=== PATIENT | female | born 1950 | race Caucasian/White ===

== ENCOUNTER → 2018-06-24 | Outpatient (CLI) | payer OTHER, MEDICARE | END | disposition home or self-care (01) | LOC: FIMAGING 14:27 | PROVIDERS: ATTEND Urology | DX: R30.0 Dysuria (principal); R93.41 Abnormal radiologic findings on diagnostic imaging of renal pelvis, ureter, or bladder; Z85.3 Personal history of malignant neoplasm of breast ==

== ENCOUNTER → 2018-08-13 | Outpatient (CLI) | payer OTHER, MEDICARE | LOC: FIMAGING 14:11 | DX: Z01.818 Encounter for other preprocedural examination (principal); Z85.3 Personal history of malignant neoplasm of breast ==

== ENCOUNTER 2018-08-18 22:26 | Emergency (ER) | payer OTHER, MEDICARE ==
[2018-08-18] MEDS ORDERED: IOPAMIDOL (ISOVUE-300) 100 ML BTL ONE (22:58)
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
[2018-08-18] MEDS ORDERED: ALPRAZolam 0.25 MG TAB PO ONE (23:08)
[2018-08-18 23:35] LABS: PLATELET COUNT 113 10^3/uL (150-400)
[2018-08-18] MEDS ORDERED: NS 1,000 ML IV ONE (23:42)
[2018-08-19 01:05] VITALS: BP 105/76
[2018-08-19] MEDS ORDERED: SULFAMET/TMP DS PREPACK#2 BTL TAKEHOME ONE (01:06)
[2018-08-19] MEDS ORDERED: ONDANSETRON 4MG PREPACK#2 BTL TAKEHOME ONE (01:19)
== END 2018-08-19 01:25 | disposition home or self-care (01) ==
DX: N39.0 Urinary tract infection, site not specified (principal)
CPT/HCPCS: 74177; 96360; 99285; Q9967

== ENCOUNTER 2018-09-24 17:15 | Observation (INO) | payer OTHER, MEDICARE ==
--- NOTE | 2018-09-24 17:39 | EDPHY ---
General Time Seen by Provider: 09/24/18 17:38 Narrative: CLINICAL IMPRESSION: Small Bowel obstruction ASSESSMENT/PLAN: Patient is a 68-year-old female with a history of remote bowel obstruction status post resection in 2 additional abdominal surgeries as well as remote breast cancer, presents with sudden onset periumbilical pain. Patient is afebrile, she is very uncomfortable appearing however not toxic appearing. Her abdomen was soft and nondistended, she was very tender to palpation superior and inferior to the umbilicus with mild voluntary guarding. CBC revealed no evidence of leukocytosis. Her vital signs were reviewed and there was no evidence of sepsis or serious bacterial illness. BMP revealed mild hypokalemia, no evidence of acute kidney injury. Lipase and hepatic panel grossly unremarkable. CT abdomen and pelvis with findings suggestive of mid-distal jejunal early bowel obstruction. History and physical examination is consistent with early bowel obstruction. I discussed this case with Dr. JOBY Nunez, she will be admitted to his service for further observation and management. He did evaluate this patient in the emergency department. The patient's pain was adequately controlled in the emergency department, on repeat examination prior to transfer to the floor her abdomen was soft with diffuse tenderness to palpation, no peritoneal signs or evidence of a surgical abdomen. DIFFERENTIAL DX: Abdominal pain including but not limited to appendicitis, cholecystitis, gastritis and urinary tract infection. ED COURSE: 1753: Discussed case with Dr. Stauffer 1902: Discussed case with Dr. Fernandez, patient with findings suggestive of early bowel obstruction at the mid distal jejunum close to the anastomosis. 1907: General surgery shy, discussed case with JOBY Nunez. 1923: Discussed CT findings with patient, will admit to Dr. Nunez for observation. On repeat exam she is much more comfortable appearing, her abdomen is soft with mild diffuse tenderness, no evidence of a surgical abdomen. CHIEF COMPLAINT: Sudden onset central abdominal pain HPI: Patient is a 68-year-old female with a history of remote bowel obstruction status post resection and remote breast cancer who presents to the emergency department with a sudden onset of centralized abdominal pain which occurred 30 min after she ate a smoothie from [employer]. Patient reports she does have intolerance to certain acidic fruits, she had a freda smoothie and is concerned it might have had bacteria in it which is causing her symptoms. Patient reports sudden onset of centralized abdominal pain that waxes and wanes in intensity. She describes it as aching in nature however sharp when it is most intense. It is non radiating. She does have some associated nausea however denies any vomiting. She denies any recent fever or other illness. She has had no chest pain or shortness of breath. She does endorse a bowel obstruction 2014 which required 3 abdominal surgeries. She had a bowel movement during her symptoms, denies diarrhea, melena or hematochezia. She has had no urinary symptoms to include dysuria, hematuria or frequency. She is unsure if she has experienced pain like this before. PMH: Remote breast cancer, reported metastatic cancer to her chest wall and lungs and 2013 which has reportedly resolved Pertinent Past Surgical History: Bowel resection, to additional revisions Family History: Noncontributory Social History: CBD, denies frequent alcohol use or illicit drug use REVIEW OF SYSTEMS: All other systems negative Constitutional: Decreased appetite. No fever, no chills. Eyes: No discharge, vision change ENT: No sore throat, congestion, ear pain. Cardiovascular: No chest pain, no palpitations. Respiratory: No cough, no shortness of breath. Gastrointestinal: Abdominal pain and nausea. No vomiting or diarrhea. Genitourinary: No hematuria, dysuria, flank pain or pelvic pain. Musculoskeletal: No back pain, joint swelling, joint pain, myalgias. Skin: No rashes, color change. Neurological: No headache, dizziness, weakness. PHYSICAL EXAM: General Appearance: Patient is well-developed, she is uncomfortable appearing bent over grabbing abdomen however not toxic-appearing. HENT: Normocephalic, atraumatic. Bilateral external ears are normal. Bilateral tympanic membranes are normal with pearly munoz reflex. Nares are clear, mucosa is pink. Oropharynx is clear however mucosa is dry, uvula is midline. There is no tonsillar enlargement or exudate. The dentition is normal. Eyes: PERRLA, no acute vision change, nystagmus, swelling, discharge, pain or photosensitivity. Conjunctiva pink, no pallor or injection. Neck: Supple, nontender, no lymphadenopathy, no midline pain, FROM, no meningismus. Respiratory: There are no retractions, lungs are clear to auscultation. Cardiac: Regular rate and rhythm, no murmurs or gallops. Gastrointestinal: Patient with a well-healed midline abdominal incision inferior to the umbilicus. She is tender to palpation superior and inferior to the umbilicus with voluntary guarding. Bowel sounds are present, there are no appreciable masses or hernias present. There is no rigidity or rebound tenderness. Neurological: Alert and oriented x 3, CN 2-12 grossly intact, normal gait no ataxia, DTR's intact, normal sensation and strength Skin: Warm, dry, no rashes, no nodules on palpation. Musculoskeletal: Extremities are symmetrical, full range of motion, no tenderness, deformity, swelling, or erythema. Psychiatric: Patient is oriented X 3, there is no agitation. MEDICAL DECISION MAKING: Patient was seen independently. Secondary supervising physician at time of evaluation was Dr. Stauffer. Diagnosis: Abdominal pain and nausea. New, requires workup Summary: See Assessment and Plan for summary of ED visit Clinical lab tests: ordered / reviewed. Independent visualization of images, tracing, or specimens: Yes. Decision to obtain medical records or history from someone other than the patient: No Review / Summarize previous medical records: Yes Discussed patient with another provider: Yes, Dr. Stauffer Patient Progress: Stable, admit. - Diagnostics Imaging Results: Imaging Impressions Abdomen CT 09/24/18 17:52 Impression: 1. Mild early partial small bowel obstruction at the proximal and mid jejunum. 2. Resolution of the bladder wall thickening seen previously. 3. Mild nonspecific intrahepatic biliary ductal dilatation similar to the prior exam. Results called and discussed with CHITRA Ortiz on September 24, 2018 at 1909 hours. - History Smoking Status: Never smoked - Objective Vital Signs: Initial Vital Signs Temperature (C) 36.6 C 09/24/18 17:18 Heart Rate 70 09/24/18 17:18 Respiratory Rate 25 H 09/24/18 17:18 Blood Pressure 154/64 H 09/24/18 17:18 O2 Sat (%) 100 09/24/18 17:18 O2 Delivery Mode Room Air Allergies/Adverse Reactions: Penicillins Allergy (Intermediate, Verified 09/24/18 17:20) erythromycin base [Erythromycin Base] Allergy (Verified 09/24/18 17:20) nitrofurantoin Allergy (Verified 09/24/18 17:20) Home Medications: Medication Instructions Recorded Herbals/Supplements -Info Only 1 ea PO DAILY 09/24/18 Multivitamins [Multivitamin (*)] 1 each PO DAILY 09/24/18 Laboratory Results: Laboratory Results 09/24/18 18:14 09/24/18 18:14 09/24/18 09/24/18 09/24/18 18:21 18:14 18:14 WBC 5.50 10^3/uL 10^3/uL (3.80-9.50) RBC 4.83 10^6/uL 10^6/uL (4.18-5.33) Hgb 13.4 g/dL g/dL (12.6-16.3) POC Hgb 14.3 gm/dL gm/dL (12.6-16.3) Hct 39.9 % % (38.0-47.0) POC Hct 42 % % (38-47) MCV 82.6 fL fL (81.5-99.8) MCH 27.7 pg L pg (27.9-34.1) MCHC 33.6 g/dL g/dL (32.4-36.7) RDW 22.5 % H % (11.5-15.2) Plt Count 118 10^3/uL L 10^3/uL (150-400) MPV TNP Neut % (Auto) 56.8 % % (39.3-74.2) Lymph % (Auto) 33.1 % % (15.0-45.0) [place] % (Auto) 8.2 % % (4.5-13.0) Eos % (Auto) 0.4 % L % (0.6-7.6) Baso % (Auto) 0.2 % L % (0.3-1.7) Nucleat RBC Rel Count 0.0 % % (0.0-0.2) Absolute Neuts (auto) 3.13 10^3/uL 10^3/uL (1.70-6.50) Absolute Lymphs (auto) 1.82 10^3/uL 10^3/uL (1.00-3.00) Absolute Monos (auto) 0.45 10^3/uL 10^3/uL (0.30-0.80) Absolute Eos (auto) 0.02 10^3/uL L 10^3/uL (0.03-0.40) Absolute Basos (auto) 0.01 10^3/uL L 10^3/uL (0.02-0.10) Absolute Nucleated RBC 0.00 10^3/uL 10^3/uL (0-0.01) Immature Gran % 1.3 % H % (0.0-1.1) Immature Gran # 0.07 10^3/uL 10^3/uL (0.00-0.10) Platelet Estimate DECREASED L (ADEQ) Polychromasia 1+ H Microcytic Cells 1+ H Elliptocytes 1+ H Schistocytes 1+ H POC Sodium 142 mEq/L mEq/L (135-145) Sodium 138 mEq/L mEq/L (135-145) POC Potassium 3.3 mEq/L mEq/L (3.3-5.0) Potassium 3.4 mEq/L L mEq/L (3.5-5.2) POC Chloride 103 mEq/L mEq/L (97-110) Chloride 103 mEq/L mEq/L (97-110) Carbon Dioxide 23 mEq/l mEq/l (22-31) POC Total CO2 23 mEq/L mEq/L (22-31) Anion Gap 12 mEq/L mEq/L (6-14) POC BUN 10 mg/dL mg/dL (7-23) BUN 12 mg/dL mg/dL (7-23) Creatinine 0.7 mg/dL mg/dL (0.6-1.0) POC Creatinine 0.7 mg/dL mg/dL (0.6-1.0) Estimated GFR > 60 Glucose 111 mg/dL H mg/dL (70-100) POC Glucose 114 mg/dL H mg/dL (70-100) Calcium 10.1 mg/dL mg/dL (8.5-10.4) Total Bilirubin 0.9 mg/dL mg/dL (0.1-1.4) Conjugated Bilirubin 0.3 mg/dL mg/dL (0.0-0.5) Unconjugated Bilirubin 0.6 mg/dL mg/dL (0.0-1.1) AST 33 IU/L IU/L (14-46) ALT 44 IU/L IU/L (9-52) Alkaline Phosphatase 69 IU/L IU/L (38-126) Total Protein 7.8 g/dL g/dL (6.3-8.2) Albumin 4.8 g/dL g/dL (3.5-5.0) Lipase 129 IU/L IU/L (23-300) Medications Given: Ondansetron HCl (Zofran) 4 mg IVP Q4 PRN PRN Reason: Nausea/Vomiting, Can't Take PO Stop: 03/23/19 17:52 Last Admin: 09/24/18 18:15 Dose: 4 mg Discontinued Medications Hydromorphone HCl (Dilaudid) 0.5 mg IVP EDNOW ONE Stop: 09/24/18 17:54 Last Admin: 09/24/18 18:15 Dose: 0.5 mg Sodium Chloride (Ns) 1,000 mls @ 0 mls/hr IV ONCE ONE PRN Reason: Wide Open Stop: 09/24/18 17:54 Last Admin: 09/24/18 18:15 Dose: 1,000 mls Point of Care Test Results: Chemistry 09/24/18 18:21 POC Sodium 142 mEq/L mEq/L (135-145) POC Potassium 3.3 mEq/L mEq/L (3.3-5.0) POC Chloride 103 mEq/L mEq/L (97-110) POC Total CO2 23 mEq/L mEq/L (22-31) POC BUN 10 mg/dL mg/dL (7-23) POC Creatinine 0.7 mg/dL mg/dL (0.6-1.0) POC Glucose 114 mg/dL H mg/dL (70-100) ISTAT H&H 09/24/18 18:21 POC Hgb 14.3 gm/dL gm/dL (12.6-16.3) POC Hct 42 % % (38-47) Departure - Departure Disposition: [facility] Acute Clinical Impression: Small bowel obstruction
[2018-09-24] MEDS ORDERED: HYDROmorphONE/DILAUDID 2 MG/ML INJ IVP ONE (17:53)
[2018-09-24] MEDS ORDERED: NS 1,000 ML IV ONE (17:53)
[2018-09-24] MEDS ORDERED: ONDANSETRON 4 MG/2 ML VIAL IVP PRN (17:53)
[2018-09-24] MEDS ORDERED: IOPAMIDOL (ISOVUE-300) 100 ML BTL ONE (18:27)
[2018-09-24 18:56] LABS: PLATELET COUNT 118 10^3/uL (150-400)
[2018-09-24] MEDS ORDERED: HYDROmorphONE/DILAUDID 1 MG/ML INJ IVP PRN (20:19)
--- NOTE | 2018-09-24 20:25 | SOAPPROG ---
SOAP Progress Note Assessment/Plan: Assessment: 68 F WITH CRAMPY ABD PAIN FOR [address] SUGGESTING SBO AFEBRILE HEENT NONICTERIC CHEST CLEAR COR RR ABD SOFT, +bs, minimally tender, no hernias or masses extrem ok rectal tender but no external swelling Plan:admit/ ivs/ pain meds/ observation 09/24/18 20:22 Objective: Vital Signs Temp Pulse Resp BP Pulse Ox 36.6 C 71 16 149/62 H 97 09/24/18 17:18 09/24/18 19:28 09/24/18 19:28 09/24/18 19:28 09/24/18 19:28 ICD10 Worksheet Patient Problems: Problems Problem Status Onset Small bowel obstruction Acute Constipation Acute Tachycardia Acute Breast cancer metastasized to lung Chronic
[2018-09-24] MEDS: D5W 1/2 NS W/ 20 KCl/L 1,000 ML IV SCH (22:10)
[2018-09-25] MEDS: D5W 1/2 NS W/ 20 KCl/L 1,000 ML IV SCH (05:48)
--- NOTE | 2018-09-25 10:00 | SOAPPROG ---
SOAP Progress Note Assessment/Plan: Assessment: 68 F WITH CRAMPY ABD PAIN FOR [address] SUGGESTING SBO AFEBRILE HEENT NONICTERIC CHEST CLEAR COR RR ABD SOFT, +bs, minimally tender, no hernias or masses extrem ok rectal tender but no external swelling Plan:admit/ ivs/ pain meds/ observation 09/24/18 20:22 09/25/18 09:58 MUCH BETTER THIS AM/NO PAIN OR CRAMPS/ ABD SOFT, NONTENDER,+FLATUS/ AFEBRILE/ CHEST CLEAR/ COR RR/ HEENT NONICTERIC PLAN SBFT AND THEN CLEARS IF OK Objective: Vital Signs Temp Pulse Resp BP Pulse Ox 36.7 C 71 12 121/69 H 97 09/25/18 08:21 09/25/18 08:21 09/25/18 08:21 09/25/18 08:21 09/25/18 08:21 09/24/18 09/25/18 09/26/18 05:59 05:59 05:59 Intake Total 1950 Balance 1950 ICD10 Worksheet Patient Problems: Problems Problem Status Onset Small bowel obstruction Acute Constipation Acute Tachycardia Acute Breast cancer metastasized to lung Chronic
[2018-09-25 16:00] VITALS: BP 112/48
--- NOTE | 2018-09-28 10:00 | GHP ---
[f rep st] PREOP HISTORY AND PHYSICAL DATE OF ADMISSION: 09/24/2018 HISTORY OF PRESENT ILLNESS: The patient is a 68-year-old female who is admitted at this time with a possible bowel obstruction from the ER. She has developed crampy, severe abdominal pain, and is unab le to keep anything down. CT scan suggested a bowel obstruction. She has a history of bowel obstruc tions in the past, and had multiple abdominal explorations. She has not had a bowel movement for 24 hours. She is admitted at this time for observation, possible NG suction. PAST HISTORY: Includes breast cancer with some metastasis to chest wall and lungs, which have suppos edly resolved. She has had a bowel resection and multiple other laparotomies for lysis of adhesions. SOCIAL HISTORY: Reveals she does not smoke. FAMILY HISTORY: Noncontributory. ALLERGIES: Penicillin, erythromycin, and nitrofurantoin. PRESENT MEDICATIONS: Are all vitamins and herbs. PHYSICAL EXAMINATION: GENERAL: Reveals an alert 68-year-old female who is in no acute distress. HE AD AND NECK: Reveals no icterus, adenopathy or oral lesions. NECK: Supple and nontender without ma sses. CHEST: Clear and symmetric. COR: Regular rhythm without murmurs. ABDOMEN: Soft, slightly distended, minimally tender with some bowel sounds. There are no obvious hernias. PELVIS: Intact a nd nontender with no bladder tenderness. EXTREMITIES: Reveal full range of motion, full pulses. CED ROLOGIC: Exam was physiologic and symmetric. PSYCH: Exam reveals her to be alert, oriented, arnold ative. IMPRESSION: Possible small bowel obstruction secondary to adhesions, although she is relatively asym ptomatic at the moment. PLAN: Admit for observation, IV fluids, n.p.o., and follow up imaging. Risks and options have been fully discussed, and she wishes to proceed. /[id number]/MODL
--- NOTE | 2018-10-07 11:14 | GDS ---
[f rep st] DISCHARGE SUMMARY DISCHARGE DIAGNOSIS: Small bowel obstruction. CONSULTATIONS: General Surgery, by Dr. Nunez. SPECIAL TESTS: Abdominal CT scan, abdomen x-ray, small-bowel follow-through. Please see reports for full details. PROCEDURES: None. HOSPITAL COURSE: This is a 68-year-old female with a history of small bowel obstructions and multiple exploratory laparotomies who presented to the emergency department complaining of worsening crampy abdominal pain and vomiting. A CT scan revealed a mild early partial small bowel obstruction at the proximal and mid jejunum. The patient was admitted for bowel rest, IV fluids, and follow up imaging. The day following admission, the patient reported feeling much better after passing a significant amount of flatus. She then underwent a small bowel x-ray that revealed a normal mucosal pattern of small bowel without strictures or evidence of dilation. That day, the patient was advanced to a clear liquid diet, which she tolerated well. She was ultimately discharged home on 09/25/2018, in good condition. She was advised to follow up with Dr. Nunez or Dr. Webb in 2 weeks. She was advised to call with any worsening symptoms. /[id number]/MODL MTDD
== END 2018-09-25 16:35 | disposition home or self-care (01) ==
LOC: F3E 20:50
PROVIDERS: ADMIT Surgery; ATTEND Surgery
DX: R10.9 Unspecified abdominal pain (principal); Z87.19 Personal history of other diseases of the digestive system; Z85.3 Personal history of malignant neoplasm of breast; Z88.0 Allergy status to penicillin
CPT/HCPCS: 74019; 74177; 74250; 96361; 96374; 96375; 99285; G0378; J1170; J2405; Q9967; 82435-PO; 82565-PO; 82947-PO; 84132-PO; 84295-PO; 84520-PO; 85014-ER